=== PATIENT | male | born 1995 | race Caucasian/White ===

== ENCOUNTER 2022-04-26 10:27 | Outpatient (CLI) | payer OTHER | END 2022-04-26 10:28 | disposition home or self-care (01) | LOC: SCSRAD 10:27 | PROVIDERS: ATTEND Internal Medicine | DX: U07.1 COVID-19 (principal) | CPT/HCPCS: 71046 ==

== ENCOUNTER 2024-08-16 12:20 | Inpatient (IN) | payer MEDICAID, OTHER ==
[2024-08-16 13:10] LABS: Hematocrit 48.1 % (42.0-52.0); Hemoglobin 14.8 g/dL (14.0-18.0); Mean Corpuscular HGB CONC 30.8 g/dL (32.0-36.0); Mean Corpuscular Hemoglobin 29.1 pg (27.0-31.0); Mean Corpuscular Volume 94.5 fL (78.0-98.0); Mean Platelet Volume 9.7 fL (7.4-10.4); Platelet Count 223 10x3/uL (130-400); RBC Distribution Width 15.6 % (11.5-14.5); Red Blood Cell (RBC) Count 5.09 mill/uL (4.70-6.10)
[2024-08-16] MEDS ORDERED: Acetaminophen 500 MG TAB ONE (13:20)
[2024-08-16 13:23] LABS: INR-International Normal Ratio 1.3; Prothrombin Time 15.9 sec (12.0-14.7)
[2024-08-16] MEDS ORDERED: LevoFLOXacin 750 mg/D5W 150 ml Premix Bag ONE (13:25)
[2024-08-16] MEDS ORDERED: cefTRIAXone (ROCEPHIN) 1 GM VIAL ONE (13:25)
[2024-08-16] MEDS ORDERED: Sodium Chloride 0.9% 100 ML ONE (13:25)
[2024-08-16 13:39] LABS: ALT (SGPT) 12 U/L (8-55); AST (SGOT) 7 U/L (5-34); Albumin 3.1 g/dL (3.5-5.0); Alkaline Phosphatase 88 U/L (40-110); Anion Gap 13 mmol/L (10-20); BUN (Urea Nitrogen) 6 mg/dL (8.9-20.6); Bilirubin, Total 1.1 mg/dL (0.2-1.2); Calc. Creatinine Clearance 0 mL/min (70-130); Calcium 8.9 mg/dL (7.8-10.44); Carbon Dioxide 21 mmol/L (22-29); Chloride 108 mmol/L (98-107); Estimated GFR 163; Globulin 3.6 g/dL (2.4-3.5); Glucose 114 mg/dL (70-105); Lipase 11 U/L (8-78); Potassium 2.6 mmol/L (3.5-5.1); Protein, Total 6.7 g/dL (6.0-8.3); Sodium 139 mmol/L (136-145)
[2024-08-16 13:52] LABS: Band 20 % (5-11); Burr Cells SLIGHT = 2-5 cells HPF (0-1); Lymphocytes 11 % (21-51); Monocytes 3 % (0-10); Neutrophil 66 % (42-75); Platelet Adequacy Comment Platelets Normal; Polychromasia SLIGHT = 2-3 cells HPF (0-2)
[2024-08-16] MEDS ORDERED: Iopamidol-370 76% 500 ML MDV (1 ML CHARGE) ONE (14:29)
[2024-08-16] MEDS ORDERED: Potassium Bicarbonate/Cit Ac 20 MEQ TAB ONE (14:30)
[2024-08-16] MEDS ORDERED: Albuterol 2.5 MG (3 mL) NEB ONE ×2 (14:41→14:59)
[2024-08-16] MEDS ORDERED: Ketorolac Tromethamine 30 MG (1 mL) VIAL ONE (14:41)
[2024-08-16] MEDS ORDERED: Ondansetron PF 4 MG/2 ML Vial ONE (14:41)
[2024-08-16] MEDS ORDERED: Ondansetron PF 4 MG/2 ML Vial IVP PRN (15:15)
[2024-08-16] MEDS ORDERED: Ondansetron ODT 4 MG TAB SL PRN (15:15)
[2024-08-16 15:26] LABS: Bacteria/HPF None Seen HPF (None Seen); Bilirubin Negative (Negative); Blood, Urine Negative (Negative); CAUTI Indications for Culture Fever or rigors; Clarity Clear (Clear); Glucose, Urine (Dipstick) Normal (Negative); Ketone, Urine Negative (Negative); Leukocyte Negative Leu/uL (Negative); Nitrite Negative (Negative); Protein, Urine (Dipstick) Negative (Neg-Trace); RBC/HPF 0-3 HPF (0-3); Specific Gravity, Urine 1.001 (1.002-1.036); Squamous Epithelial None Seen HPF (0-3); Urobilinogen Normal mg/dL (Less than 2); WBC/HPF 0-3 HPF (0-3)
[2024-08-16 15:36] LABS: Urine Culture Reflex No No
[2024-08-16 16:10] LABS: Lactic Acid 2.63 mmol/L (0.5-2.2)
[2024-08-16] MEDS ORDERED: Senokot S 8.6-50 MG TAB PO PRN (17:14)
[2024-08-16] MEDS ORDERED: Calcium Carbonate 500 MG ChewTAB PO PRN (17:14)
[2024-08-16] MEDS ORDERED: Acetaminophen 650 MG Suppository PR PRN (17:14)
[2024-08-16] MEDS ORDERED: Acetaminophen 325 MG TAB PO PRN (17:14)
[2024-08-16] MEDS ORDERED: Prochlorperazine Edisylate 10 MG in Sodium Chloride 0.9% 50 ML IVPB PRN (17:15)
[2024-08-16] MEDS ORDERED: Polyethylene Glycol 3350 17 GM Packet PO PRN (17:17)
[2024-08-16] MEDS ORDERED: Ipratropium Bromide 2.5 ml Neb NEB PRN (17:25)
[2024-08-16] MEDS: Ipratropium/Albuterol 3 ML NEB NEB SCH (18:59)
[2024-08-16] MEDS: Famotidine 20 MG TAB PO SCH (20:57)
[2024-08-16] MEDS: Potassium Chloride 20 MEQ TAB PO SCH (20:58)
[2024-08-16] MEDS: methylPREDNISolone Sod Succ 40 MG VIAL IVP SCH (20:59)
[2024-08-16] MEDS: Nystatin 500,000 UNITS/5 ML UDCUP SSW SCH (20:59)
[2024-08-16] MEDS: Linezolid 600 MG in Premix 1 BAG IVPB SCH (21:02)
[2024-08-16] MEDS: Ketorolac Tromethamine 30 MG (1 mL) VIAL IVP PRN (21:11)
[2024-08-16] MEDS: Nystatin Cream 15 GM TUBE TOP SCH (22:23)
[2024-08-16] MEDS: Potassium Chloride 20 MEQ in Lactated Ringer's 1,000 ML IV SCH (23:44)
[2024-08-16] MEDS: Cefepime 2 GM in Sodium Chloride 0.9% 100 ML IVPB SCH (23:45)
[2024-08-17 04:05] LABS: #Basophils Less than 0.03 10x3/uL (0.0-0.2); #Eosinophils Less than 0.03 10x3/uL (0.0-0.7); %Basophils 0.1 % (0.0-1.0); %Lymphocytes 5.3 % (21.0-51.0); %Monocytes 1.7 % (0.0-10.0); %Neutrophils 92.5 % (42.0-75.0); Hematocrit 45.1 % (42.0-52.0); Mean Corpuscular Hemoglobin 28.7 pg (27.0-31.0); Mean Corpuscular Volume 92.4 fL (78.0-98.0); Mean Platelet Volume 10.1 fL (7.4-10.4); Platelet Count 219 10x3/uL (130-400); RBC Distribution Width 15.6 % (11.5-14.5); Red Blood Cell (RBC) Count 4.88 mill/uL (4.70-6.10)
[2024-08-17 05:07] LABS: Anion Gap 13 mmol/L (10-20); BUN (Urea Nitrogen) 6 mg/dL (8.9-20.6); Calc. Creatinine Clearance 0 mL/min (70-130); Calcium 9.3 mg/dL (7.8-10.44); Carbon Dioxide 21 mmol/L (22-29); Chloride 108 mmol/L (98-107); Estimated GFR 160; Glucose 125 mg/dL (70-105); Potassium 4.5 mmol/L (3.5-5.1); Sodium 137 mmol/L (136-145)
[2024-08-17] MEDS: Saccharomyces boulardii 250 MG CAP PO SCH (08:20)
[2024-08-17] MEDS: Enoxaparin 30 MG (0.3 mL) SYRINGE SC SCH (08:20)
[2024-08-17] MEDS ORDERED: Albuterol 2.5 MG (3 mL) NEB NEB PRN (09:12)
[2024-08-17] MEDS: guaiFENesin ER 600 MG TAB PO SCH (11:03)
[2024-08-17] MEDS: Fluticasone Propionate Nasal Spray 16 gm Bottle NASAL SCH (11:03)
[2024-08-17] MEDS: Benzonatate 100 MG CAP PO SCH (11:03)
[2024-08-17] MEDS: HYDROcodone/Acetaminophen 5/325 mg Tablet PO PRN (14:13)
[2024-08-17] MEDS: Mometasone 100 MCG/Formoterol 5 MCG 120 PUFF INHALER INH SCH (19:02)
[2024-08-17] MEDS: GUAIFENESIN SF SOLN 200 MG/10 ML UDCUP PO PRN (20:53)
[2024-08-18] MEDS: Lactated Ringer's 1,000 ML IV SCH (04:19)
[2024-08-18 04:39] LABS: #Basophils Less than 0.03 10x3/uL (0.0-0.2); #Eosinophils Less than 0.03 10x3/uL (0.0-0.7); %Lymphocytes 14.2 % (21.0-51.0); %Monocytes 3.9 % (0.0-10.0); %Neutrophils 81.5 % (42.0-75.0); Hematocrit 39.5 % (42.0-52.0); Hemoglobin 12.1 g/dL (14.0-18.0); Mean Corpuscular HGB CONC 30.6 g/dL (32.0-36.0); Mean Corpuscular Hemoglobin 28.5 pg (27.0-31.0); Mean Corpuscular Volume 92.9 fL (78.0-98.0); Mean Platelet Volume 10.4 fL (7.4-10.4); Platelet Count 232 10x3/uL (130-400); RBC Distribution Width 15.5 % (11.5-14.5); Red Blood Cell (RBC) Count 4.25 mill/uL (4.70-6.10)
[2024-08-18 05:03] LABS: Anion Gap 11 mmol/L (10-20); BUN (Urea Nitrogen) 5 mg/dL (8.9-20.6); Calc. Creatinine Clearance 269 mL/min (70-130); Calcium 8.9 mg/dL (7.8-10.44); Carbon Dioxide 23 mmol/L (22-29); Chloride 108 mmol/L (98-107); Estimated GFR 164; Glucose 142 mg/dL (70-105); Potassium 4.2 mmol/L (3.5-5.1); Sodium 138 mmol/L (136-145)
[2024-08-18] MEDS: FLU (Fluarix Triv) TS24-25(6MOS UP)/PF 45 MCG/0.5 ML Syringe IM ONE (09:41)
[2024-08-18 14:24] VITALS: BMI 22.1
[2024-08-18] MEDS: Budesonide 0.5 MG/2 ML NEB INH SCH (19:25)
[2024-08-19 04:41] LABS: #Basophils Less than 0.03 10x3/uL (0.0-0.2); #Eosinophils Less than 0.03 10x3/uL (0.0-0.7); %Basophils 0.2 % (0.0-1.0); %Lymphocytes 25.6 % (21.0-51.0); %Monocytes 3.7 % (0.0-10.0); %Neutrophils 69.8 % (42.0-75.0); Hemoglobin 12.5 g/dL (14.0-18.0); Mean Corpuscular HGB CONC 31.3 g/dL (32.0-36.0); Mean Corpuscular Hemoglobin 28.9 pg (27.0-31.0); Mean Corpuscular Volume 92.4 fL (78.0-98.0); Mean Platelet Volume 10.3 fL (7.4-10.4); Platelet Count 265 10x3/uL (130-400); RBC Distribution Width 15.4 % (11.5-14.5); Red Blood Cell (RBC) Count 4.33 mill/uL (4.70-6.10)
[2024-08-19 05:16] LABS: Anion Gap 11 mmol/L (10-20); BUN (Urea Nitrogen) 6 mg/dL (8.9-20.6); Calc. Creatinine Clearance 239 mL/min (70-130); Calcium 8.7 mg/dL (7.8-10.44); Carbon Dioxide 26 mmol/L (22-29); Chloride 105 mmol/L (98-107); Estimated GFR 158; Glucose 159 mg/dL (70-105); Potassium 4.1 mmol/L (3.5-5.1); Sodium 138 mmol/L (136-145)
[2024-08-19] MEDS ORDERED: Amoxicillin/Potassium Clav 600 mg/5 ml Oral Suspension PO SCH ×2 (09:45→21:00)
[2024-08-19] MEDS: Amoxicillin/Potassium Clav 250 mg/5 ml Oral Suspension PO SCH (14:07)
[2024-08-20 04:32] LABS: #Basophils 0.03 10x3/uL (0.0-0.2); #Eosinophils Less than 0.03 10x3/uL (0.0-0.7); %Basophils 0.7 % (0.0-1.0); %Lymphocytes 33.7 % (21.0-51.0); %Monocytes 2.9 % (0.0-10.0); %Neutrophils 60.1 % (42.0-75.0); Hemoglobin 13.7 g/dL (14.0-18.0); Mean Corpuscular HGB CONC 31.1 g/dL (32.0-36.0); Mean Corpuscular Hemoglobin 28.7 pg (27.0-31.0); Mean Corpuscular Volume 92.1 fL (78.0-98.0); Mean Platelet Volume 10.3 fL (7.4-10.4); Platelet Count 290 10x3/uL (130-400); RBC Distribution Width 15.4 % (11.5-14.5); Red Blood Cell (RBC) Count 4.78 mill/uL (4.70-6.10)
[2024-08-20 04:47] LABS: Anion Gap 14 mmol/L (10-20); BUN (Urea Nitrogen) 8 mg/dL (8.9-20.6); Calc. Creatinine Clearance 244 mL/min (70-130); Calcium 9.1 mg/dL (7.8-10.44); Carbon Dioxide 27 mmol/L (22-29); Chloride 99 mmol/L (98-107); Estimated GFR 160; Glucose 137 mg/dL (70-105); Potassium 4.3 mmol/L (3.5-5.1); Sodium 136 mmol/L (136-145)
[2024-08-20] MEDS: Hydrocortisone 1% Cream 30 GM TUBE TOP SCH (13:39)
[2024-08-20] MEDS: Miconazole 2% Cream 30 GM TUBE TOP SCH (13:49)
[2024-08-20] MEDS: Clotrimazole 1 % Cream 30 GM TUBE TOP SCH (14:11)
[2024-08-21 03:40] LABS: Mean Corpuscular HGB CONC 30.4 g/dL (32.0-36.0); Mean Corpuscular Hemoglobin 28.7 pg (27.0-31.0); Mean Corpuscular Volume 94.3 fL (78.0-98.0); Mean Platelet Volume 9.7 fL (7.4-10.4); Platelet Count 293 10x3/uL (130-400); RBC Distribution Width 15.2 % (11.5-14.5); Red Blood Cell (RBC) Count 4.88 mill/uL (4.70-6.10)
[2024-08-21] MEDS: Morphine 4 MG/ML VIAL SLOW IVP PRN (03:47)
[2024-08-21 03:52] LABS: Anion Gap 12 mmol/L (10-20); BUN (Urea Nitrogen) 11 mg/dL (8.9-20.6); Calc. Creatinine Clearance 291 mL/min (70-130); Calcium 9.1 mg/dL (7.8-10.44); Carbon Dioxide 27 mmol/L (22-29); Chloride 102 mmol/L (98-107); Glucose 126 mg/dL (70-105); Potassium 4.3 mmol/L (3.5-5.1); Sodium 137 mmol/L (136-145)
[2024-08-21 04:12] LABS: Anisocytosis SLIGHT = 6-15 cells HPF (0-5); Band 2 % (5-11); Large Platelets 2.9 % (0-5); Lymphocytes 26 % (21-51); Metamyelocyte 1 % (0-0); Monocytes 1 % (0-10); Myelocyte 3 % (0-0); Neutrophil 68 % (42-75); Platelet Adequacy Comment Platelets Normal; Polychromasia SLIGHT = 2-3 cells HPF (0-2); Toxic Granulation SLIGHT; Vacuoles SLIGHT
[2024-08-21 15:46] VITALS: BP 137/80; TEMP 98.9
== END 2024-08-21 15:46 | disposition home or self-care (01) | DRG 871 ==
LOC: ERS 12:20 → ERHOLD 15:05 → 2NO 18:14
PROVIDERS: ADMIT Hospitalist; ATTEND Internal Medicine
PROC: 3E03329 Introduction of Other Anti-infective into Peripheral Vein, Percutaneous Approach (ICD-10-PCS; principal; 2024-08-16)
PROC: 5A09357 Assistance with Respiratory Ventilation, Less than 24 Consecutive Hours, Continuous Positive Airway Pressure (ICD-10-PCS; 2024-08-17)
DX: A41.9 Sepsis, unspecified organism (principal); J18.9 Pneumonia, unspecified organism; J96.01 Acute respiratory failure with hypoxia; E87.6 Hypokalemia; Z91.040 Latex allergy status; Z88.1 Allergy status to other antibiotic agents; Z88.2 Allergy status to sulfonamides; Z79.899 Other long term (current) drug therapy; E86.0 Dehydration; G71.00 Muscular dystrophy, unspecified
CPT/HCPCS: 36415; 36416; 71045; 71046; 71275; 76870; 80048; 80053; 81001; 83605; 83690; 83880; 84484; 85025; 85610; 85730; 87086; 87428; 93005; 93976; 94640; 94644; 94760; 96361; 96365; 96367; 96375; 97139; J0692; J0696; J1650; J1885; J1956; J2020; J2272; J2405; J2919; J3480; J7120; J7611; J7620; J7626; Q9967

== ENCOUNTER 2024-09-20 08:59 | Outpatient (CLI) | payer MEDICAID | END 2024-09-20 09:00 | disposition home or self-care (01) | LOC: RAD 08:59 | PROVIDERS: ATTEND Internal Medicine Critical Care Medicine | DX: R06.00 Dyspnea, unspecified (principal) | CPT/HCPCS: 71046 ==